=== PATIENT | female | born 1975 | race Two or more races ===

== ENCOUNTER 2020-06-13 21:30 | Emergency (ER) | payer OTHER ==
[~2020-06-13] VITALS: Ht 162.6 cm; Wt 77.1 kg
[2020-06-13] MEDS ORDERED: VISTARIL25 MG PO (23:05)
[2020-06-13] MEDS ORDERED: CARAFATE1 GM PO (23:11)
== END 2020-06-13 23:24 | disposition home or self-care (01) ==
LOC: ER 21:30
DX: R06.02 Shortness of breath (principal)